=== PATIENT | male | born 1980 | race Caucasian/White ===

== ENCOUNTER → 2020-01-19 12:44 | Outpatient (BNVA) | payer OTHER, SELFPAY | PROVIDERS: Visit Provider Orthopaedic Surgery | DX: S46.001D Unspecified injury of muscle(s) and tendon(s) of the rotator cuff of right shoulder, subsequent encounter (principal) | CPT/HCPCS: 99212 ==

== ENCOUNTER 2023-05-09 08:37 | Outpatient (REF) | payer OTHER, SELFPAY ==
--- NOTE | ~2023-05-09 | XR_ITS ---
EXAMINATION: XR PELVIS CLINICAL INFORMATION: Pain COMPARISON: None available. TECHNIQUE: AP view of the pelvis. FINDINGS: Alignment is normal at the hips, pubic symphysis and sacroiliac joints. A malleable fixation plate along the posterior column of the right acetabulum and fixation screws are intact. Also, there is an intact fixation screw at the high right superior pubic ramus. No osteolysis around the hardware. The articular cartilage space of each hip is maintained. There is no evidence of femoral fracture or osteonecrosis. The soft tissues are unremarkable. No specific source of pain is identified. XR/XR pelvis 1-2V IMPRESSION: There is intact fixation hardware of the right pelvis. No acute radiographic abnormalities.
== END 2023-05-09 08:38 | disposition home or self-care (01) ==
LOC: HO.HOSX 08:37
PROVIDERS: Visit Provider Orthopaedic Surgery
DX: Z13.89 Encounter for screening for other disorder (principal)

== ENCOUNTER 2023-05-30 10:53 | Outpatient (AMB) | payer OTHER, SELFPAY ==
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
[2023-05-30 11:05] VITALS: BMI 44.1
== END 2023-05-30 12:01 | disposition home or self-care (01) ==
PROVIDERS: PCP Nurse Practitioner Family; Visit Provider Orthopaedic Surgery
DX: M16.11 Unilateral primary osteoarthritis, right hip (principal)
CPT/HCPCS: 99203

== ENCOUNTER → 2023-05-30 10:53 | Outpatient (BNVA) | payer OTHER, SELFPAY | PROVIDERS: PCP Nurse Practitioner Family; Visit Provider Orthopaedic Surgery | DX: M16.11 Unilateral primary osteoarthritis, right hip (principal) | CPT/HCPCS: 72170; 99202 ==

== ENCOUNTER 2023-06-13 13:03 | Outpatient (AMB) | payer OTHER, SELFPAY ==
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
[2023-06-13 13:08] VITALS: BP 135/80; PULSE 102; O2SAT 97; BMI 44.8
== END 2023-06-13 13:41 | disposition home or self-care (01) ==
PROVIDERS: PCP Nurse Practitioner Family; Referring Provider Orthopaedic Surgery; Visit Provider Nurse Practitioner Family
DX: M16.11 Unilateral primary osteoarthritis, right hip (principal); M25.551 Pain in right hip; M47.817 Spondylosis without myelopathy or radiculopathy, lumbosacral region; M53.3 Sacrococcygeal disorders, not elsewhere classified
CPT/HCPCS: 99204

== ENCOUNTER → 2023-06-13 13:03 | Outpatient (BNVA) | payer OTHER, SELFPAY | PROVIDERS: PCP Nurse Practitioner Family; Referring Provider Orthopaedic Surgery; Visit Provider Nurse Practitioner Family | DX: M16.11 Unilateral primary osteoarthritis, right hip (principal); M25.551 Pain in right hip; M47.817 Spondylosis without myelopathy or radiculopathy, lumbosacral region; M53.3 Sacrococcygeal disorders, not elsewhere classified | CPT/HCPCS: 99202 ==

== ENCOUNTER 2023-07-02 06:11 | Outpatient (REF) | payer OTHER, SELFPAY ==
--- NOTE | ~2023-07-02 | FL_ITS ---
EXAMINATION: XR FLUOROSCOPY WITH IMAGES CLINICAL INFORMATION: Right hip pain. COMPARISON: Right femur radiographs dated 05/30/2023. TECHNIQUE: Fluoroscopy Supervised By: Dr. Fritz Mercer. Fluoroscopy Time: 0.0 minutes. Cumulative Dose: 2.79 mGy. DAP: 0.760 Gycm2. Images: 2. FINDINGS: The submitted images of the right hip show a right pelvic fixator plate and fixator screws. As per submitted note, no pain injection procedure is performed. FL/FL guidance in treatment room IMPRESSION: Intraoperative fluoroscopic guidance is provided during right hip pain management procedure, apparently aborted. Please see the patient's Operative Report for full procedural details.
== END 2023-07-02 06:12 | disposition home or self-care (01) ==
LOC: CF 06:11
PROVIDERS: Visit Provider Anesthesiology
DX: M16.11 Unilateral primary osteoarthritis, right hip (principal); M25.551 Pain in right hip; Z87.81 Personal history of (healed) traumatic fracture
CPT/HCPCS: 99212

== ENCOUNTER 2023-11-07 13:06 | Outpatient (REF) | payer OTHER, SELFPAY ==
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
== END 2023-11-07 13:07 | disposition home or self-care (01) ==
LOC: HO.CT 13:06
PROVIDERS: PCP Nurse Practitioner Family; Visit Provider Anesthesiology
DX: M16.11 Unilateral primary osteoarthritis, right hip (principal)
CPT/HCPCS: 72192